=== PATIENT | female | born 1960 | race African-American/Black ===

== ENCOUNTER 2018-02-28 11:37 | Emergency (ER) | payer BC ==
[~2018-02-28] VITALS: Ht 170.2 cm; Wt 139.0 kg
[~2018-02-28 11:37] MED LIST: AMLODIPINE5 MG PO; CIPROFLOXACIN500 M1 PO; IRON325 MG OR; LORTAB 10-325 M1 TAB PO; NORVASC PO; PERCOCET 5/325M1 TAB PO; ZPAK PO
[2018-02-28] MEDS ORDERED: METFORMIN500 MG PO (12:23)
[2018-02-28 12:29] LABS: IMMATURE GRANULOCYTES 0.5 % (0.0-1.0); MEAN CELL VOLUME 93.3 fL CALC (80.0-100.0); MEAN CORPUSCULAR HGB CONC 33.3 g/L CALC (32.0-36.0); NEUT# 7.95 thou/uL (2.00-7.15); RED BLOOD COUNT 4.93 mill/uL (4.20-5.60); RED CELL DISTRI WIDTH 13.4 % (11.5-15.5)
[2018-02-28 12:30] LABS: URINE BILIRUBIN - DIPSTICK NEGATIVE (NEGATIVE); URINE BLOOD DIPSTICK NEGATIVE (NEGATIVE); URINE CLARITY SL CLOUDY; URINE COLOR YELLOW; URINE GLUCOSE - DIPSTICK 100 mg/dL (NEGATIVE); URINE KETONE TRACE mg/dL (NEGATIVE); URINE LEUK ESTERASE NEGATIVE (NEGATIVE); URINE NITRITE - DIPSTICK NEGATIVE (Negative); URINE PH 6.5 (4.5-8.0); URINE PROTEIN - DIPSTICK TRACE mg/dL (NEG-TRACE)
[2018-02-28 12:30] LABS: HEMOGLOBIN 15.3 g/dl (12.0-16.0)
[2018-02-28 12:44] LABS: ALBUMIN 4.4 g/dL (3.2-5.0); ALKALINE PHOSPHATASE 152 u/l (38-126); ANION GAP 22 (6-22 (CALC)); BILIRUBIN, TOTAL 0.9 mg/dL (0.0-1.4); BUN 11 mg/dL (7-17); BUN/CREATININE RATIO 14 (12-20 (CALC)); CARBON DIOXIDE 27 mmol/l (22-30); CHLORIDE 97 mmol/l (95-108); CREATININE 0.8 mg/dL (0.5-1.0); GFR > 60 ML/MIN (>=60 (CALC)); GFR FOR AFR.AMER. > 60 ML/MIN (>=60 (CALC)); LIPASE 98 u/l (23-300); POTASSIUM 3.4 mmol/l (3.5-5.1); SGOT/AST 73 u/l (14-36); SGPT/ALT 50 u/l (9-52); SODIUM 142 mmol/l (137-146); TOTAL PROTEIN 9.2 g/dL (6.3-8.2)
[2018-02-28] MEDS ORDERED: ONDANSETRON4 MG PO (14:39)
[2018-02-28 14:55] VITALS: BP 162/93
== END 2018-02-28 14:42 | disposition home or self-care (01) | DRG 392 ==
LOC: ED 11:37
PROVIDERS: Family Medicine
DX: K52.9 Noninfective gastroenteritis and colitis, unspecified (principal); I10 Essential (primary) hypertension
CPT/HCPCS: Q9967

== ENCOUNTER 2018-04-08 14:18 | Observation (INO) | payer BC ==
[~2018-04-08] VITALS: Ht 170.2 cm; Wt 137.0 kg
[~2018-04-08 14:18] MED LIST changes: +METFORMIN500 MG PO; +ONDANSETRON4 MG PO
--- NOTE | 2018-04-08 14:18 | NUR ---
PT IMMEDIATELY TO TX ROOM , NO DISTRESS NOTED
--- NOTE | 2018-04-08 14:50 | NUR ---
PT C/O SWELLING TO LIPS, WORSE ON LEFT THAN RIGHT. STATES IT STARTED LAST NIGHT BUT WORSENED TODAY. DENIES COUGH. DENIES SOB. DENIES TROUBLE SWALLOWING. DENIES PAIN. PT A&Ox3. SISTER @BEDSIDE. SISTER @BEDSE. PT IN GOWN. ON MONITOR. CALLBELL W/IN REACH.
--- NOTE | 2018-04-08 14:58 | NUR ---
EDP @BEDSIDE. BOTH PT & SISTER ON CELLPHONES. NO PROBLEM CONVERSING. SPEECH CLEAR.
--- NOTE | 2018-04-08 16:01 | NUR ---
PT & VISITOR SLEEPING IN ER ROOM 14, EASILY AROUSED. PTS LIPS STILL SWOLLEN. DENIES TONGUE OR THROAT SWELLING. DENIES DYSPNEA.
--- NOTE | 2018-04-08 16:32 | NUR ---
EPI GIVEN. PT/VISITOR SLEEPING IN ER BED. PT AWOKEN TO EDUCATE ABOUT MED.
[2018-04-08] MEDS ORDERED: ZESTRIL/PRINIV2.5 MG PO (16:45)
--- NOTE | 2018-04-08 17:00 | NUR ---
EDP @BEDSIDE ASSESSING PT.
--- NOTE | 2018-04-08 17:28 | NUR ---
RECVING PORTIA ANNA.
--- NOTE | 2018-04-08 17:40 | NUR ---
FAMILY GOING HOME. PT LAYING IN BED. COMFORTABLE. NO DISTRESS. NO NEEDS. WAITING TO GIVE REPORT TO RECVING RN.
--- NOTE | 2018-04-08 17:51 | NUR ---
RECVING PORTIA WCB
--- NOTE | 2018-04-08 18:03 | NUR ---
Admission Note Report Given to: SHAD Transported by: X Wheelchair Stretcher Transported with: X Nurse Transporter X Patent IV O2 X Shirt Closer
--- NOTE | 2018-04-08 18:12 | NUR ---
PT TRANSFERED TO [facility] BY STRETCHER WITH TELE IN STABLE CONDITION.
[2018-04-08 18:17] VITALS: BP 171/67
--- NOTE | 2018-04-08 18:20 | NUR ---
REPORT RECEIVED FROM ANSHUL IN ED, PT JUST ARRIVED ON UNIT VIA STRETCHER AND TRANSFERRED TO BED BY AMBULATION, ALERT AND ORIENTED X 4, DENIES PAIN AT THIS TIME. ORIENTED TO ROOM AND CALL ALEXANDRE. NO LABS AVAILABLE FOR THIS PT, REPORTING RN STATED PLAN WAS TO ADDRESS LIP SWELLING AND SEND HOME BUT WITH TREATMENTS IN ED NO IMPROVEMENTS HAVE OCCURRED. WILL CONTINUE TO MONITOR, CALL ALEXANDRE IN REACH.
--- NOTE | 2018-04-08 19:00 | NUR ---
RECEIVED CGANGE OF SHIFT REPORT FROM PORTIA KEITH. PT ALERT AND ORIENTED X3 AND SITTING UP IN CHAIR. NO VOICED COMPLAINTS. NO APPARENT ACUTE DISTRESS NOTED AT THIS TIME. WILL CONTINUE TO MONITOR.
[2018-04-08 19:11] LABS: HEMATOCRIT 43.4 % (37.0-47.0); HEMOGLOBIN 14.4 g/dl (12.0-16.0); IMMATURE GRANULOCYTES 0.4 % (0.0-1.0); MEAN CORPUSCULAR HGB 31.5 pG CALC (26.0-32.0); MEAN CORPUSCULAR HGB CONC 33.2 g/L CALC (32.0-36.0); NEUT# 3.76 thou/uL (2.00-7.15); RED BLOOD COUNT 4.57 mill/uL (4.20-5.60); RED CELL DISTRI WIDTH 13.2 % (11.5-15.5)
[2018-04-08 19:49] LABS: ALBUMIN 4.2 g/dL (3.2-5.0); ALKALINE PHOSPHATASE 109 u/l (38-126); BILIRUBIN, TOTAL 0.7 mg/dL (0.0-1.4); BUN 16 mg/dL (7-17); BUN/CREATININE RATIO 18 (12-20 (CALC)); CARBON DIOXIDE 24 mmol/l (22-30); CHLORIDE 106 mmol/l (95-108); CREATININE 0.9 mg/dL (0.5-1.0); GFR > 60 ML/MIN (>=60 (CALC)); GFR FOR AFR.AMER. > 60 ML/MIN (>=60 (CALC)); SGOT/AST 75 u/l (14-36); SGPT/ALT 51 u/l (9-52); SODIUM 141 mmol/l (137-146); TOTAL PROTEIN 8.1 g/dL (6.3-8.2)
[2018-04-08 19:55] LABS: ANION GAP 15 (6-22 (CALC)); POTASSIUM 4.1 mmol/l (3.5-5.1)
[2018-04-09] VITALS (7 sets, daily range): BP systolic 168–210; BP diastolic 90–103
--- NOTE | 2018-04-09 | NUR ---
RESTING QUIETLY. NO APPARENT ACUTE DISTRESS NOTED
--- NOTE | 2018-04-09 04:00 | NUR ---
PT RESTED WELL DURING THE NIGHT. NO APPARENT ACUTE CHANGES NOTED IN PT'S CONDITION.
[2018-04-09 04:38] LABS: HEMATOCRIT 42.9 % (37.0-47.0); HEMOGLOBIN 14.3 g/dl (12.0-16.0); IMMATURE GRANULOCYTES 0.4 % (0.0-1.0); MEAN CELL VOLUME 93.9 fL CALC (80.0-100.0); MEAN CORPUSCULAR HGB 31.3 pG CALC (26.0-32.0); MEAN CORPUSCULAR HGB CONC 33.3 g/L CALC (32.0-36.0); NEUT# 4.65 thou/uL (2.00-7.15); RED BLOOD COUNT 4.57 mill/uL (4.20-5.60); RED CELL DISTRI WIDTH 13.1 % (11.5-15.5)
[2018-04-09 04:54] LABS: ALBUMIN 3.9 g/dL (3.2-5.0); ALKALINE PHOSPHATASE 95 u/l (38-126); ANION GAP 15 (6-22 (CALC)); BILIRUBIN, TOTAL 0.6 mg/dL (0.0-1.4); BUN 18 mg/dL (7-17); BUN/CREATININE RATIO 20 (12-20 (CALC)); CARBON DIOXIDE 23 mmol/l (22-30); CHLORIDE 105 mmol/l (95-108); CREATININE 0.9 mg/dL (0.5-1.0); GFR > 60 ML/MIN (>=60 (CALC)); GFR FOR AFR.AMER. > 60 ML/MIN (>=60 (CALC)); POTASSIUM 4.2 mmol/l (3.5-5.1); SGOT/AST 56 u/l (14-36); SGPT/ALT 45 u/l (9-52); SODIUM 139 mmol/l (137-146); TOTAL PROTEIN 7.8 g/dL (6.3-8.2)
--- NOTE | 2018-04-09 07:11 | NUR ---
SHIFT CHANGE REPORT FROM JULES FRANCIS AWAKE ALERT AND ORIENTED RESTING IN BED, FACE SWOLEN, C/O SORENESS TO THROAT AND COUGHING UP WHITE MUCUS, TELE MONITOR IN PLACE, CALL ALEXANDRE IN REACH.
--- NOTE | 2018-04-09 11:00 | NUR ---
PT REQUESTING POWER, DR PEREZ NOTIFIED AND GAVE ORDER, REQUEST HONORED.
--- NOTE | 2018-04-09 12:00 | NUR ---
UNABLE TO TOLETATE MEAL AND C/O DIFFICULTY SWALLOWING, MD AWARE. WILL CONTINUE TO MONITOR.
--- NOTE | 2018-04-09 12:41 | NUR ---
SITTING UP IN BED, REPORTS HAVING DIFFICULTY IN SWALLOWING EVEN LIQUIDS, PRODUCING COPIOUS AMOUNT SECRETIONS FROM THROAT, WILL CONTINUE TO MONITOR.
--- NOTE | 2018-04-09 16:37 | NUR ---
ASSISTED WITH SETUP FOR SHOWER, STATED SHE IS BEGINNING TO FEEL BETTER BUT STILL HOS SOME SECRETIONS IN THROAT, SITTING UP IN RECLINER AT THIS TIME, WILL CONTINUE TO MONITOR.
[2018-04-10 00:19] VITALS: BP 183/101
[2018-04-10 04:00] VITALS: BP 176/91
--- NOTE | 2018-04-10 04:00 | NUR ---
NO APPARENT ACUTE CHANGES NOTED IN PT'S CONDITION.
[2018-04-10 05:38] LABS: HEMATOCRIT 41.2 % (37.0-47.0); HEMOGLOBIN 13.7 g/dl (12.0-16.0); IMMATURE GRANULOCYTES 0.5 % (0.0-1.0); MEAN CELL VOLUME 94.9 fL CALC (80.0-100.0); MEAN CORPUSCULAR HGB 31.6 pG CALC (26.0-32.0); MEAN CORPUSCULAR HGB CONC 33.3 g/L CALC (32.0-36.0); NEUT# 9.15 thou/uL (2.00-7.15); RED BLOOD COUNT 4.34 mill/uL (4.20-5.60); RED CELL DISTRI WIDTH 13.3 % (11.5-15.5)
[2018-04-10 05:57] LABS: ALBUMIN 3.7 g/dL (3.2-5.0); ALKALINE PHOSPHATASE 85 u/l (38-126); ANION GAP 14 (6-22 (CALC)); BILIRUBIN, TOTAL 0.5 mg/dL (0.0-1.4); BUN 23 mg/dL (7-17); BUN/CREATININE RATIO 25 (12-20 (CALC)); CARBON DIOXIDE 23 mmol/l (22-30); CHLORIDE 109 mmol/l (95-108); CREATININE 0.9 mg/dL (0.5-1.0); GFR > 60 ML/MIN (>=60 (CALC)); GFR FOR AFR.AMER. > 60 ML/MIN (>=60 (CALC)); POTASSIUM 4.6 mmol/l (3.5-5.1); SGOT/AST 32 u/l (14-36); SGPT/ALT 39 u/l (9-52); SODIUM 141 mmol/l (137-146); TOTAL PROTEIN 7.3 g/dL (6.3-8.2)
--- NOTE | 2018-04-10 07:05 | NUR ---
REPORT RECEIVED BY NESSA. PT IS RESTING IN BED WITH NO S/S OF DISTRESS NOTED. CALL LIGHT IN REACH.
[2018-04-10 08:00] VITALS: BP 173/95
--- NOTE | 2018-04-10 08:00 | NUR ---
ASSESSMENT DONE TELE IN PLACE. RESPS EVEN AND UNLABORED. PT DENIES PAIN. NS 100ML/HR INFUSING WELL. SAFETY PRECAUTIONS REINFORCED AND CALL LIGHT IN REACH.
[2018-04-10] MEDS ORDERED: MEDDOSEPAK PO (08:49)
[2018-04-10] MEDS ORDERED: ZYRTEC10 M3 PO (08:50)
[2018-04-10 09:40] VITALS: BP 150/88
--- NOTE | 2018-04-10 10:10 | NUR ---
Discharge instructions given. Patient verbalizes understanding of same. Discharged in stable condition via Wheelchair to Home with volunteer. All belongings sent with pt.
== END 2018-04-10 10:10 | disposition home or self-care (01) | DRG 916 ==
LOC: ED 14:18 → ED-I 16:54 → ED 17:09 → MS2 17:10
PROVIDERS: ADMIT Internal Medicine Geriatric Medicine; ATTEND Internal Medicine Geriatric Medicine
DX: T78.3XXA Angioneurotic edema, initial encounter (principal); E11.9 Type 2 diabetes mellitus without complications; I10 Essential (primary) hypertension; K21.9 Gastro-esophageal reflux disease without esophagitis; M19.079 Primary osteoarthritis, unspecified ankle and foot
CPT/HCPCS: G0378

== ENCOUNTER → 2018-12-14 | Outpatient (REF) ==
[~2018-12-14] MED LIST changes: +MEDDOSEPAK PO; +ZESTRIL/PRINIV2.5 MG PO; +ZYRTEC10 M3 PO
== END | disposition home or self-care (01) | DRG 639 ==
LOC: LABSPEC 13:39 → LAB 13:39
PROVIDERS: ATTEND Internal Medicine Geriatric Medicine
DX: E11.65 Type 2 diabetes mellitus with hyperglycemia (principal)

== ENCOUNTER → 2018-12-14 | Outpatient (REF) | payer BC | END | disposition home or self-care (01) | DRG 556 | LOC: ULTRASND 13:37 | PROVIDERS: ATTEND Internal Medicine Geriatric Medicine | DX: M25.572 Pain in left ankle and joints of left foot (principal); I73.9 Peripheral vascular disease, unspecified ==

== ENCOUNTER 2019-01-24 21:53 | Observation (INO) | payer BC ==
[~2019-01-24] VITALS: Ht 170.2 cm; Wt 139.0 kg
[2019-01-24] MEDS ORDERED: AMLODIPINE BESY10 MG PO (22:06)
[2019-01-24] MEDS ORDERED: METFORMIN HCL1000 MG PO (22:06)
[2019-01-24] MEDS ORDERED: REPAGLINIDE1 MG PO (22:07)
[2019-01-24 23:00] LABS: IMMATURE GRANULOCYTES 0.3 % (0.0-5.0); MEAN CELL VOLUME 93.2 fL CALC (80.0-100.0); MEAN CORPUSCULAR HGB 31.1 pG CALC (26.0-32.0); MEAN CORPUSCULAR HGB CONC 33.4 g/L CALC (32.0-36.0); NEUT# 8.02 thou/uL (2.00-7.15); RED BLOOD COUNT 5.17 mill/uL (4.20-5.60); RED CELL DISTRI WIDTH 13.3 % (11.5-15.5)
[2019-01-24 23:01] LABS: HEMATOCRIT 48.2 % (37.0-47.0); HEMOGLOBIN 16.1 g/dl (12.0-16.0)
[2019-01-24 23:13] LABS: ALBUMIN 4.2 g/dL (3.2-5.0); AMYLASE 54 u/l (30-110); ANION GAP 17 (6-22 (CALC)); BUN 15 mg/dL (7-17); BUN/CREATININE RATIO 14 (12-20 (CALC)); CARBON DIOXIDE 26 mmol/l (22-30); CHLORIDE 103 mmol/l (95-108); GFR 57 ML/MIN (>=60 (CALC)); GFR FOR AFR.AMER. > 60 ML/MIN (>=60 (CALC)); LIPASE 141 u/l (23-300); POTASSIUM 4.2 mmol/l (3.5-5.1); SGOT/AST 48 u/l (14-36); SODIUM 143 mmol/l (137-146); TOTAL PROTEIN 7.5 g/dL (6.3-8.2)
[2019-01-24 23:25] LABS: ALKALINE PHOSPHATASE 136 u/l (38-126); BILIRUBIN, TOTAL 0.8 mg/dL (0.0-1.4)
[2019-01-25 02:00] VITALS: BP 120/56
[2019-01-25 05:27] VITALS: BP 97/48
[2019-01-25 06:17] LABS: HEMOGLOBIN 14.7 g/dl (12.0-16.0); IMMATURE GRANULOCYTES 1.2 % (0.0-5.0); MEAN CELL VOLUME 95.9 fL CALC (80.0-100.0); MEAN CORPUSCULAR HGB 31.3 pG CALC (26.0-32.0); MEAN CORPUSCULAR HGB CONC 32.7 g/L CALC (32.0-36.0); NEUT# 7.03 thou/uL (2.00-7.15); RED BLOOD COUNT 4.69 mill/uL (4.20-5.60); RED CELL DISTRI WIDTH 13.6 % (11.5-15.5)
[2019-01-25 06:37] LABS: BILIRUBIN, TOTAL 0.8 mg/dL (0.0-1.4); CREATININE 1.4 mg/dL (0.5-1.0); POTASSIUM 4.9 mmol/l (3.5-5.1); TOTAL PROTEIN 6.3 g/dL (6.3-8.2)
[2019-01-25 06:42] LABS: ALBUMIN 3.3 g/dL (3.2-5.0)
[2019-01-25 07:45] VITALS: BP 137/68
[2019-01-25 16:30] VITALS: BP 137/74
[2019-01-25 18:50] VITALS: BP 145/80
[2019-01-25 23:08] VITALS: BP 145/79
[2019-01-26 03:55] VITALS: BP 148/90
[2019-01-26 05:07] LABS: IMMATURE GRANULOCYTES 0.4 % (0.0-5.0); MEAN CELL VOLUME 97.9 fL CALC (80.0-100.0); MEAN CORPUSCULAR HGB 31.6 pG CALC (26.0-32.0); MEAN CORPUSCULAR HGB CONC 32.3 g/L CALC (32.0-36.0); NEUT# 4.06 thou/uL (2.00-7.15); RED BLOOD COUNT 3.89 mill/uL (4.20-5.60); RED CELL DISTRI WIDTH 13.5 % (11.5-15.5)
[2019-01-26 05:24] LABS: ALBUMIN 3.4 g/dL (3.2-5.0); BILIRUBIN, TOTAL 0.7 mg/dL (0.0-1.4); CHOLESTEROL HDL RATIO 3.9 (<4.4 (CALC)); CREATININE 1.2 mg/dL (0.5-1.0); TOTAL PROTEIN 6.3 g/dL (6.3-8.2)
[2019-01-26 05:36] LABS: HEMATOCRIT 38.1 % (37.0-47.0); HEMOGLOBIN 12.3 g/dl (12.0-16.0)
[2019-01-26 05:40] LABS: POTASSIUM 3.9 mmol/l (3.5-5.1)
[2019-01-26 07:30] VITALS: BP 158/78
[2019-01-26 10:40] VITALS: BP 157/74
[2019-01-26 15:15] VITALS: BP 141/78
[2019-01-26 19:00] VITALS: BP 168/86
[2019-01-27 00:17] VITALS: BP 163/81
[2019-01-27 04:00] VITALS: BP 142/80
[2019-01-27 06:27] LABS: HEMATOCRIT 36.9 % (37.0-47.0); HEMOGLOBIN 11.9 g/dl (12.0-16.0); IMMATURE GRANULOCYTES 0.2 % (0.0-5.0); MEAN CELL VOLUME 95.6 fL CALC (80.0-100.0); MEAN CORPUSCULAR HGB 30.8 pG CALC (26.0-32.0); MEAN CORPUSCULAR HGB CONC 32.2 g/L CALC (32.0-36.0); NEUT# 2.24 thou/uL (2.00-7.15); RED BLOOD COUNT 3.86 mill/uL (4.20-5.60); RED CELL DISTRI WIDTH 13.1 % (11.5-15.5)
[2019-01-27 06:54] LABS: ANION GAP 11 (6-22 (CALC)); BUN 10 mg/dL (7-17); BUN/CREATININE RATIO 12 (12-20 (CALC)); CARBON DIOXIDE 26 mmol/l (22-30); CHLORIDE 107 mmol/l (95-108); CREATININE 0.8 mg/dL (0.5-1.0); GFR > 60 ML/MIN (>=60 (CALC)); GFR FOR AFR.AMER. > 60 ML/MIN (>=60 (CALC)); POTASSIUM 3.7 mmol/l (3.5-5.1); SODIUM 141 mmol/l (137-146)
[2019-01-27 07:59] VITALS: BP 171/77
[2019-01-27 08:33] VITALS: BP 171/77
[2019-01-27] MEDS ORDERED: FAMOTIDINE20 M1 PO (08:50)
[2019-01-27] MEDS ORDERED: METOPROL TAR100 MG PO (08:50)
== END 2019-01-27 10:20 | disposition home or self-care (01) | DRG 392 ==
LOC: ED 21:53 → ED-I 01-25 00:55 → ED 01-25 01:10 → MS2 01-25 01:11
PROVIDERS: Emergency Medicine; ADMIT Internal Medicine Geriatric Medicine; ATTEND Internal Medicine Geriatric Medicine
DX: R10.13 Epigastric pain (principal); R10.33 Periumbilical pain; R19.7 Diarrhea, unspecified; Z68.42 Body mass index [BMI] 45.0-49.9, adult; I10 Essential (primary) hypertension; E11.9 Type 2 diabetes mellitus without complications; E78.5 Hyperlipidemia, unspecified; E66.9 Obesity, unspecified; M19.079 Primary osteoarthritis, unspecified ankle and foot; Z91.19 Patient's noncompliance with other medical treatment and regimen
CPT/HCPCS: G0378; Q9967; S0164

== ENCOUNTER 2019-03-25 00:58 | Emergency (ER) | payer BC ==
[~2019-03-25] VITALS: Ht 170.2 cm; Wt 134.0 kg
[~2019-03-25 00:58] MED LIST changes: +AMLODIPINE BESY10 MG PO; +FAMOTIDINE20 M1 PO; +METFORMIN HCL1000 MG PO; +METOPROL TAR100 MG PO; +REPAGLINIDE1 MG PO
[2019-03-25 01:52] LABS: HEMATOCRIT 38.6 % (37.0-47.0); HEMOGLOBIN 12.9 g/dl (12.0-16.0); IMMATURE GRANULOCYTES 0.2 % (0.0-5.0); MEAN CELL VOLUME 93.7 fL CALC (80.0-100.0); MEAN CORPUSCULAR HGB 31.3 pG CALC (26.0-32.0); MEAN CORPUSCULAR HGB CONC 33.4 g/L CALC (32.0-36.0); NEUT# 3.16 thou/uL (2.00-7.15); RED BLOOD COUNT 4.12 mill/uL (4.20-5.60); RED CELL DISTRI WIDTH 13.4 % (11.5-15.5)
[2019-03-25 02:10] LABS: ACT PARTIAL THROMBO TIME 25.4 SECONDS (20.0-32.5); PROTHROMBIN TIME 10.7 SECONDS (9.0-12.5)
[2019-03-25 05:59] VITALS: BP 150/66
== END 2019-03-25 06:12 | disposition home or self-care (01) | DRG 151 ==
LOC: ED 00:58
PROVIDERS: Emergency Medicine
DX: R04.0 Epistaxis (principal); I10 Essential (primary) hypertension; E11.9 Type 2 diabetes mellitus without complications; T46.5X6A Underdosing of other antihypertensive drugs, initial encounter; Z91.128 Patient's intentional underdosing of medication regimen for other reason

== ENCOUNTER 2020-12-15 12:50 | Observation (INO) | payer SELFPAY ==
[~2020-12-15] VITALS: Ht 170.2 cm; Wt 132.0 kg
--- NOTE | 2020-12-15 12:50 | NUR ---
PATIENT TO ROOM VIA WHEELCHAIR AND PHYSICIAN AT BEDSIDE FOR EVAL
--- NOTE | 2020-12-15 13:11 | NUR ---
PT SENT OVER FROM PRIMARY MD FOR SVT AND HTN. PT TO ROOM 11 AND EKG COMPLETED AND FOUND TO BE IN SVT PLACED ON ZOLL MONITOR, ADENOSINE 6MG GIVEN WITH MD AT BEDSIDE. N CHANGE IN RHYTHM. 12MG OF ADENOSINE THEN GIVEN. PT THEN WAS SR WITH PVCS HR 78-90.
[2020-12-15 13:36] LABS: HEMATOCRIT 40.9 % (37.0-47.0); HEMOGLOBIN 13.2 g/dl (12.0-16.0); IMMATURE GRANULOCYTES 0.3 % (0.0-5.0); MEAN CORPUSCULAR HGB 32.8 pG CALC (26.0-32.0); MEAN CORPUSCULAR HGB CONC 32.3 g/dL CAL (32.0-36.0); NEUT# 3.39 thou/uL (2.00-7.15); RED BLOOD COUNT 4.03 mill/uL (4.20-5.60); RED CELL DISTRI WIDTH 13.7 % (11.5-15.5)
[2020-12-15 13:46] LABS: MEAN CELL VOLUME 101.5 fL CALC (80.0-100.0)
--- NOTE | 2020-12-15 13:55 | NUR ---
PT RESTING COMFORTABLY ON STRETCHER AT THIS TIME. PT STATES THAT SHE IS FEELING LIGHTHEADED MADE AWARE.
[2020-12-15 13:57] LABS: ACT PARTIAL THROMBO TIME 22.5 SECONDS (20.0-32.5); INTERNATIONAL NORMALIZED RATIO 1.1 RATIO (0.7-1.3); PROTHROMBIN TIME 11.3 SECONDS (9.0-12.5)
[2020-12-15 14:07] LABS: D-DIMER 0.68 mg/L (0.19-0.60)
[2020-12-15 14:09] LABS: ALKALINE PHOSPHATASE 100 u/l (38-126); ANION GAP 17 (6-22 (CALC)); BUN 14 mg/dL (7-17); BUN/CREATININE RATIO 12 (12-20 (CALC)); CARBON DIOXIDE 21 mmol/l (22-30); CHLORIDE 103 mmol/l (95-108); CREATININE 1.2 mg/dL (0.5-1.0); ETHYL ALCOHOL 0 mg/dl (0-30); GFR 46 ML/MIN (>=60 (CALC)); GFR FOR AFR.AMER. 56 ML/MIN (>=60 (CALC)); POTASSIUM 3.4 mmol/l (3.5-5.1); SODIUM 138 mmol/l (137-146)
[2020-12-15 14:14] LABS: ALBUMIN 4.4 g/dL (3.2-5.0); SGOT/AST 65 u/l (14-36); TOTAL PROTEIN 8.1 g/dL (6.3-8.2)
[2020-12-15 14:38] LABS: TSH, 3RD GENERATION 2.74 uIU/mL (0.47 - 4.68)
--- NOTE | 2020-12-15 14:38 | NUR ---
PT RESTING ON STRETCHER. NO DISTRESS NOTED. VSS ON MONITOR. REPORTS LIGHTHEADEDNESS IMPROVING
--- NOTE | 2020-12-15 15:30 | NUR ---
PT RSTING COMFORTABLY ON STRETCHER. VSS.
--- NOTE | 2020-12-15 16:35 | NUR ---
PT RESTING ON STRETCHER AWARE OF PENDING ADMIT.
--- NOTE | 2020-12-15 17:00 | NUR ---
REPORT CALLED TO FAUSTO PEARCE ON MED SURG
[2020-12-15 17:15] VITALS: BP 178/92
--- NOTE | 2020-12-15 17:15 | NUR ---
PT TO MEDSURG VIA WHEELCHAIR ON TELE.
--- NOTE | 2020-12-15 17:15 | NUR ---
PATIENT RECEIVED AT THIS TIME FROM ED REPORT GIVEN TO THIS NURSE BY JULIO WHITAKER RN. PATIENT ARRIVED ALERT AND ORIENTED AND TELE IN PLACE READING SR 84. PATIENT DENIES ANY PAIN AT THIS TIME LUNG YARBROUGH CLEAR IN ALL LUNG YARBROUGH AND BOWEL SOUNDS PRESENT IN ALL FOUR QUADRANTS. PATIENT ORIENTED TO ROOM AND NEW SURROUNDINGS. NO EDEMA NOTED AT THIS TIME. BP AT THIS TIME WAS 178/92 HEART RATE IS 82 METOPROLOL 25MG GIVEN AT THIS TIME. SIDERAILS ARE UP CALL LIGHT AND PERSONAL ITEMS WITHIN REACH.
[2020-12-15 18:35] VITALS: BP 150/78
--- NOTE | 2020-12-15 20:00 | NUR ---
PATIENT SITTING UP ON THE SIDE OF THE BED-AWAKE ALERT AND ORIENTEDX3. PATIENT WITH NO COMPLAINTS AT THIS TIME-DENIES ANY CHEST PAIN OR PALPATATIONS. TELE MONITOR IN PLACE. HR-78 AND REGULAR. LUNGS ARE CLEAR. STATES THAT SHE HAD A BM TODAY WITHOUT ANY DIFFICULTY. VOIDING QS WITHOUT ANY DIFFICULTY. NO PEDAL EDEMA NOTED AND PULSES ARE PALPABLE. HS SNACK GIVEN. HAS SNACK THAT WAS BROUGHT IN FROM FAMILY. SALINE LOCK TO RAC INTACT AND FLUSHES WELL WITH GOOD BLOOD RETURN. SAFETY PRECAUTIONS REINFORCED. CALL LIGHT IN REACH. WILL CONT TO MONITOR.
[2020-12-16 00:19] VITALS: BP 147/85
--- NOTE | 2020-12-16 01:00 | NUR ---
PATIENT RESTING IN BED-TROP RESULTS ARE NEG AT THIS TIME. TELE MONITOR REMAINS IN PLACE. NO COMPLAINTS AT THIS TIME. CALL LIGHT IN REACH. WILL CONT TO MONITOR.
[2020-12-16 04:44] VITALS: BP 152/78
--- NOTE | 2020-12-16 05:22 | NUR ---
PATIENT RESTING IN BED AT THIS TIME-APPEARS SLEEPING AT THIS TIME WITH EYES CLOSED. RESPS ARE EVEN AND UNLABORED. TELE MONITOR IN PLACE. CALL LIGHT IN REACH. WILL CONT TO MONITOR.
[2020-12-16 05:44] LABS: HEMATOCRIT 36.9 % (37.0-47.0); HEMOGLOBIN 11.9 g/dl (12.0-16.0); IMMATURE GRANULOCYTES 0.2 % (0.0-5.0); MEAN CELL VOLUME 101.1 fL CALC (80.0-100.0); MEAN CORPUSCULAR HGB 32.6 pG CALC (26.0-32.0); MEAN CORPUSCULAR HGB CONC 32.2 g/dL CAL (32.0-36.0); NEUT# 2.52 thou/uL (2.00-7.15); RED BLOOD COUNT 3.65 mill/uL (4.20-5.60); RED CELL DISTRI WIDTH 13.8 % (11.5-15.5)
[2020-12-16 06:07] LABS: ALBUMIN 3.6 g/dL (3.2-5.0); CHOLESTEROL HDL RATIO 5.2 (<4.4 (CALC)); CREATININE 1.4 mg/dL (0.5-1.0); MAGNESIUM 1.4 mg/dL (1.6-2.3); POTASSIUM 3.9 mmol/l (3.5-5.1)
[2020-12-16 07:25] VITALS: BP 159/92
--- NOTE | 2020-12-16 08:00 | NUR ---
PT RESTING IN THE BED. AXOX3. DENIES C/P DENIES ANY OTHER TYPE OF PAIN AT THIS TIME. O2 RA. PATIENT STATES SHE HOPE SHE WILL BE ABLE TO GO HOME TODAY. REPOSITIOEND FOR COMFORT, SIDE RAILS UP CALL LIGHT IN REACH BED LOCKED IN LOW POSITION, ALL SAFTY MEASURES IN PLACE. WILL CONTINUE TO MONIOTR THE PATIENT.
[2020-12-16 10:27] VITALS: BP 131/69
--- NOTE | 2020-12-16 10:38 | NUR ---
PT IV SITE NOT IN CORRECT ORDER. HL D/CD. #20 PLACED IN THE RIGHT HAND.
[2020-12-16] MEDS ORDERED: TOPROL XL50 MG PO (11:26)
[2020-12-16] MEDS ORDERED: SLOW-MAG PO (11:27)
--- NOTE | 2020-12-16 11:28 | NUR ---
PT RESTING COMFORTABLE IN THE BED SIDE CHAIR, NO DISTRESS NOTED AT THIS TIME. CALL LIGHT IN REACH. WILL CONTINUE TO MONIOTR THE PATIENT.
[2020-12-16] MEDS ORDERED: METFORMIN500 M2 PO (14:26)
--- NOTE | 2020-12-16 14:36 | NUR ---
DISCHARGE ORDERS GIVEN UNDERSTOOD AND SIGNED BY THE PT. SCRIPTS FOR GLUCOSE SUPPLIES GIVEN TO THE PT.
== END 2020-12-16 15:02 | disposition home or self-care (01) | DRG 309 ==
LOC: ED 12:50 → ED-I 14:47 → ED 15:09 → MS2 15:10
PROVIDERS: Nurse Practitioner; ADMIT Internal Medicine; ATTEND Internal Medicine
DX: I47.1 Supraventricular tachycardia (principal); I42.9 Cardiomyopathy, unspecified; Z68.42 Body mass index [BMI] 45.0-49.9, adult; I10 Essential (primary) hypertension; E11.9 Type 2 diabetes mellitus without complications; K21.9 Gastro-esophageal reflux disease without esophagitis; E66.9 Obesity, unspecified; T46.5X6A Underdosing of other antihypertensive drugs, initial encounter; T38.3X6A Underdosing of insulin and oral hypoglycemic [antidiabetic] drugs, initial encounter; Z91.128 Patient's intentional underdosing of medication regimen for other reason; Z20.822 Contact with and (suspected) exposure to COVID-19
CPT/HCPCS: G0378; J0153; J1650; J3475

== ENCOUNTER 2021-12-03 23:00 | Emergency (ER) | payer BC ==
[~2021-12-03] VITALS: Ht 170.2 cm; Wt 126.0 kg
[~2021-12-03 23:00] MED LIST changes: +METFORMIN500 M2 PO; +SLOW-MAG PO; +TOPROL XL50 MG PO
[2021-12-03 23:13] VITALS: BP 139/83
[2021-12-03 23:26] LABS: HEMATOCRIT 37.1 % (37.0-47.0); IMMATURE GRANULOCYTES 0.3 % (0.0-5.0); MEAN CELL VOLUME 103.9 fL CALC (80.0-100.0); MEAN CORPUSCULAR HGB 33.6 pG CALC (26.0-32.0); MEAN CORPUSCULAR HGB CONC 32.3 g/dL CAL (32.0-36.0); NEUT# 2.98 thou/uL (2.00-7.15); RED BLOOD COUNT 3.57 mill/uL (4.20-5.60)
[2021-12-03 23:45] LABS: ALBUMIN 4.2 g/dL (3.2-5.0); ALKALINE PHOSPHATASE 96 u/l (38-126); BILIRUBIN, TOTAL 0.6 mg/dL (0.0-1.4); BUN 15 mg/dL (7-17); BUN/CREATININE RATIO 11 (12-20 (CALC)); CHLORIDE 104 mmol/l (95-108); CREATININE 1.3 mg/dL (0.5-1.0); GFR 42 ML/MIN (>=60 (CALC)); GFR FOR AFR.AMER. 51 ML/MIN (>=60 (CALC)); POTASSIUM 3.2 mmol/l (3.5-5.1); SGOT/AST 49 u/l (14-36); SODIUM 140 mmol/l (137-146)
[2021-12-03 23:56] LABS: MYOGLOBIN 57 ng/mL (0 - 62)
[2021-12-03 23:58] LABS: ANION GAP 20 (6-22 (CALC)); CARBON DIOXIDE 19 mmol/l (22-30); TOTAL PROTEIN 8.7 g/dL (6.3-8.2)
[2021-12-04 00:01] LABS: AMYLASE 78 u/l (30-110); LIPASE 253 u/l (23-300)
[2021-12-04] MEDS ORDERED: PREVACID30 M3 PO (01:23)
[2021-12-04 01:30] VITALS: BP 139/83
[2021-12-04 01:35] LABS: URINE BILIRUBIN - DIPSTICK NEGATIVE (NEGATIVE); URINE BLOOD DIPSTICK MODERATE (NEGATIVE); URINE COLOR YELLOW; URINE GLUCOSE - DIPSTICK NEGATIVE (NEGATIVE); URINE KETONE NEGATIVE (NEGATIVE); URINE LEUK ESTERASE MODERATE (NEGATIVE); URINE NITRITE - DIPSTICK NEGATIVE (Negative); URINE PH 5.5 (4.5-8.0); URINE PROTEIN - DIPSTICK TRACE mg/dL (NEG-TRACE); URINE UROBILINOGEN - DIPSTICK 0.2 E.U./dL (0.2)
[2021-12-04 01:38] LABS: URINE BACTERIA MANY hpf; URINE SQUAMOUS EPITHELIAL CELL FEW EPI/hpf (0-FEW)
[2021-12-04] MEDS ORDERED: KEFLEX500 MG PO (01:42)
== END 2021-12-04 01:45 | disposition home or self-care (01) | DRG 880 ==
LOC: ED 23:00
PROVIDERS: Emergency Medicine
DX: F41.9 Anxiety disorder, unspecified (principal); N39.0 Urinary tract infection, site not specified; F10.10 Alcohol abuse, uncomplicated; M25.562 Pain in left knee; I10 Essential (primary) hypertension; E11.9 Type 2 diabetes mellitus without complications; K21.9 Gastro-esophageal reflux disease without esophagitis; E66.01 Morbid (severe) obesity due to excess calories; B96.89 Other specified bacterial agents as the cause of diseases classified elsewhere; W18.30XA Fall on same level, unspecified, initial encounter; Y92.002 Bathroom of unspecified non-institutional (private) residence as the place of occurrence of the external cause

== ENCOUNTER 2024-05-03 18:39 | Emergency (ER) | payer OTHER, BC ==
[~2024-05-03] VITALS: Ht 170.2 cm; Wt 127.0 kg
[2024-05-03] VITALS (7 sets, daily range): BP systolic 117–145; BP diastolic 66–78
[~2024-05-03 18:39] MED LIST changes: +KEFLEX500 MG PO; +PREVACID30 M3 PO
[2024-05-03] MEDS ORDERED: COLCHICINE 0.6 MG/TAB PO ONE ×2 (19:30)
[2024-05-03] MEDS ORDERED: GABAPENTIN100 MG PO (19:54)
[2024-05-03] MEDS ORDERED: TOPROL XL50 MG PO (19:55)
[2024-05-03] MEDS ORDERED: METFORMIN500 M2 PO (19:56)
[2024-05-03] MEDS ORDERED: MAXZIDE-25MG1 COMBO PO (19:57)
[2024-05-03] MEDS ORDERED: MOTRIN800 MG PO (19:57)
[2024-05-03] MEDS ORDERED: INDOCIN25 MG PO (20:20)
== END 2024-05-03 20:49 | disposition home or self-care (01) | DRG 554 ==
LOC: ED 18:39
DX: M19.072 Primary osteoarthritis, left ankle and foot (principal); I10 Essential (primary) hypertension; E11.9 Type 2 diabetes mellitus without complications; E66.01 Morbid (severe) obesity due to excess calories; Z79.84 Long term (current) use of oral hypoglycemic drugs